=== PATIENT | female | born 1975 | race Caucasian/White ===

== ENCOUNTER 2018-09-23 15:52 | Emergency (ER) | payer OTHER ==
[~2018-09-23] VITALS: Ht 170.2 cm; Wt 97.5 kg
--- NOTE | 2018-09-23 17:05 | Diagnostic Imaging Report ---
EXAMINATION: CT of the abdomen and pelvis without contrast. TECHNIQUE: Spiral CT images of the abdomen and pelvis were performed from the lung bases to the lesser trochanters. No intravenous contrast was given per physician's request. Coronal and sagittal reformatted images were obtained. COMPARISON: None. CLINICAL HISTORY:Right abdominal pain DISCUSSION: ABSENCE OF INTRAVENOUS CONTRAST DECREASES SENSITIVITY FOR DETECTION OF FOCAL LESIONS AND VASCULAR PATHOLOGY. ABDOMEN/PELVIS: LOWER THORAX: Unremarkable. HEPATOBILIARY: Mild diffuse hepatic steatosis. No focal lesions. No intra or extrahepatic biliary ductal dilation. GALLBLADDER: Layering material in the dependent portion of the gallbladder lumen likely represents sludge. No radiopaque stones. No wall thickening. SPLEEN: No splenomegaly. PANCREAS: No focal masses or ductal dilatation. ADRENALS: No adrenal nodules. KIDNEYS/URETERS: No hydronephrosis, stones, or contour abnormalities. No perinephric stranding PELVIC ORGANS/BLADDER: Bladder is mostly decompressed, without focal lesions. Uterus is unremarkable. No adnexal masses. PERITONEUM/RETROPERITONEUM: Trace fluid in the pelvic cul-de-sac and between the uterus and bladder anteriorly (sagittal image 62 and series 2, image 71). No pneumoperitoneum. LYMPH NODES: No intra-abdominal,retroperitoneal, pelvic or inguinal lymphadenopathy. VESSELS: Unremarkable for noncontrast exam. GI TRACT: No bowel dilation or evidence of obstruction. No wall thickening or intraluminal masses. Appendix is well identified and normal in caliber. No pericolonic inflammatory changes. Stomach is unremarkable. BONES AND SOFT TISSUES: No aggressive lytic lesions. Degenerative disc changes in the lower lumbosacral spine. Likely L4 limbus vertebra. Soft tissues are grossly unremarkable. IMPRESSION: 1. No acute abdominal pelvic abnormalities. Specifically, no acute abnormal findings in the right abdomen or pelvis to explain the patient's pain. 2. Mild diffuse hepatic steatosis. 3. Findings in the gallbladder likely represents sludge. No CT evidence of cholelithiasis or cholecystitis. 4. Trace free fluid in the pelvic cul-de-sac and between uterus and bladder anteriorly is likely physiological. Correlate with menstrual cycle history. Signed by: Dr. Manav Gonzalez M.D. on 09/23/2018 5:02 PM
== END 2018-09-23 17:48 | disposition home or self-care (01) ==
LOC: FSED 15:52
DX: K80.20 Calculus of gallbladder without cholecystitis without obstruction (principal)
CPT/HCPCS: 74176; 80053; 81003; 81025; 85025; 99284